=== PATIENT | female | born 1950 | race Caucasian/White ===

== ENCOUNTER 2018-07-31 08:40 | Day surgery (SDC) | payer MEDICARE, OTHER ==
[~2018-07-31 08:40] MED LIST: ALBU90OI6 INH; ALL DAY ALLERGY10 M1 PO; ATOR20 PO; ESTR2; IBUP600; Klor-Con 1010 MEQ; LOPERAMIDE1 MG/7.5 M PO; LORA.5 PO; LOSHYD; MECL12.5; NASACORT10.8 ML; Omeprazole20 M1 PO; SCOPTP
[2018-08-06 13:42] LABS: Performing Lab SYMBIODX; Test Name LEFT BREAST
[2018-09-15] MEDS ORDERED: LOSARTAN-HCTZ1 EAC2 PO (10:41)
[2018-09-15] MEDS ORDERED: ERGO400 PO (10:46)
[2018-09-15] MEDS ORDERED: MICRO-K PO (10:46)
[2018-09-15] MEDS ORDERED: IBUP600 PO (10:47)
[2018-09-15] MEDS ORDERED: MECL12.5 PO (10:48)
== END 2018-07-31 23:05 | disposition home or self-care (01) ==
LOC: MOI US 08:40 → MOI MAM 09:00 → MOI US 09:00 → MOI MAM 08-14 08:00 → MOI US 08-14 08:00
DX: C50.912 Malignant neoplasm of unspecified site of left female breast (principal)
CPT/HCPCS: 19083; 77065; 88305; 88360; 88374; A4648; G0279

== ENCOUNTER 2018-09-18 08:38 | Day surgery (SDC) | payer MEDICARE, OTHER ==
[~2018-09-18 08:38] MED LIST changes: +ERGO400 PO; +IBUP600 PO; +LOSARTAN-HCTZ1 EAC2 PO; +MECL12.5 PO; +MICRO-K PO
== END 2018-09-18 23:10 | disposition home or self-care (01) ==
LOC: MOI US 08:38
DX: C50.812 Malignant neoplasm of overlapping sites of left female breast (principal)
CPT/HCPCS: 19285; 77065; G0279

== ENCOUNTER 2018-09-21 07:50 | Day surgery (SDC) | payer MEDICARE, OTHER ==
[~2018-09-21] VITALS: Ht 160 cm; Wt 88.9 kg
--- NOTE | 2018-09-21 09:34 | NUR ---
Ambulatory in Day Surgery History, Chart, Medications and Allergies reviewed before start of procedure.Lungs clear T/O to Auscultation. Patient confirms NPO status and agrees with scheduled surgery. Surgical site prepped with 2% Chlorhexidine cloth wipe. Patient States Post-Procedure ride home has been arranged.
--- NOTE | 2018-09-21 14:19 | NUR ---
REPORT FROM EVELIO HOWARD. PT AWAKE AND TEARFUL. PROVIDED EMOTIONAL SUPPORT. BREAST BINDER IN PLACE, DRESSINGS CDI. PT TOLERATED FOOD AND FLUIDS. GAVE 2 NORCO PER ORDER. WILL CONTINUE TO MONITOR.
--- NOTE | 2018-09-21 15:55 | NUR ---
PT HAD NARES FOR MRSA SENT PRIOR TO SURGERY. SENT THROAT CULTURE TO RULE OUT MRSA WITHIN 4 HOURS AFTER CLINDAMYCIN GIVEN IN OR. ALL BELONGINGS SENT WITH PATIENT. Discharge instructions reviewed with patient. Patient verbalizes understanding. Copy given to patient to take home. Dressing to procedure site clean, dry, intact with no visible drainage, swelling, erythema or bruising noted. Patient States Post-Procedure ride home has been arranged. Discharged via wheelchair to private car for ride home. BREAST BINDER STRAPS IN D/C ENVELOPE.
--- NOTE | 2018-09-22 13:27 | NUR ---
09/22/18 1327 Veronique Agarwal VERIFICATIONS: EDIT CHART.
[2018-10-06] MEDS ORDERED: POTCHL10ER PO (16:44)
== END 2018-09-21 23:01 | disposition home or self-care (01) ==
LOC: ORSCMMR 07:50 → NM 07:50
PROVIDERS: Surgery
PROC: 0HBU0ZZ Excision of Left Breast, Open Approach (ICD-10-PCS; principal; 2018-09-21 10:30)
PROC: 07B60ZX Excision of Left Axillary Lymphatic, Open Approach, Diagnostic (ICD-10-PCS; principal; 2018-09-21 10:30)
DX: C50.812 Malignant neoplasm of overlapping sites of left female breast (principal); C77.3 Secondary and unspecified malignant neoplasm of axilla and upper limb lymph nodes; I10 Essential (primary) hypertension; J45.909 Unspecified asthma, uncomplicated; K21.9 Gastro-esophageal reflux disease without esophagitis; E66.9 Obesity, unspecified; Z68.34 Body mass index [BMI] 34.0-34.9, adult; Z79.899 Other long term (current) drug therapy
CPT/HCPCS: 38792; 76098; 87070; 87081; 88307; 88331; A9520; J1100; J1885; J2250; J2310; J2370; J2405; J3010; J7120; Q9968

== ENCOUNTER 2018-10-09 06:08 | Day surgery (SDC) | payer MEDICARE, OTHER ==
[~2018-10-09] VITALS: Ht 162.6 cm; Wt 86.9 kg
[~2018-10-09 06:08] MED LIST changes: +POTCHL10ER PO
--- NOTE | 2018-10-09 09:24 | NUR ---
10/09/18 0924 Rocio Cox CLEARED BY RADIOLOGY, UP TO CHAIR AND GIVEN SODA AND CRACKERS
== END 2018-10-09 09:29 | disposition home or self-care (01) ==
LOC: ORSCSDS 06:08 → ORSCMMR 07:30 → ORSCSDS 09:29 → ORSCMMR 10:30 → ORSCSDS 10:30 → ORD 10:30
PROVIDERS: Surgery
PROC: B543ZZA Ultrasonography of Right Jugular Veins, Guidance (ICD-10-PCS; principal; 2018-10-09 07:30)
PROC: 05HM33Z Insertion of Infusion Device into Right Internal Jugular Vein, Percutaneous Approach (ICD-10-PCS; principal; 2018-10-09 07:30)
PROC: B5131ZA Fluoroscopy of Right Jugular Veins using Low Osmolar Contrast, Guidance (ICD-10-PCS; principal; 2018-10-09 07:30)
DX: C50.812 Malignant neoplasm of overlapping sites of left female breast (principal); C50.412 Malignant neoplasm of upper-outer quadrant of left female breast; I10 Essential (primary) hypertension; J45.909 Unspecified asthma, uncomplicated; K21.9 Gastro-esophageal reflux disease without esophagitis; Z79.899 Other long term (current) drug therapy
CPT/HCPCS: 71045; 77001; C1788; J0461; J1100; J1642; J2250; J2370; J2405; J3010; J7120

== ENCOUNTER → 2019-01-23 | Outpatient (CLI) | payer MEDICARE, OTHER | END | disposition home or self-care (01) | LOC: LAB 09:55 → LAB SHORT 09:55 → EDSTATUS 01-23 17:10 → LAB FUT 01-23 17:10 | DX: C50.412 Malignant neoplasm of upper-outer quadrant of left female breast (principal) | CPT/HCPCS: 87493 ==

== ENCOUNTER → 2020-03-09 | Outpatient (CLI) | payer MEDICARE, OTHER | END | disposition home or self-care (01) | LOC: LAB 12:46 → LAB SHORT 12:46 | DX: R30.0 Dysuria (principal) | CPT/HCPCS: 87077; 87086; 87186 ==

== ENCOUNTER → 2020-07-05 | Outpatient (CLI) | payer MEDICARE, OTHER ==
[2020-07-05 14:20] LABS: Source, Urine Clean Catch
[2020-07-05 15:59] LABS: Appearance, Urine Hazy (Clear); Bilirubin, Urine Neg (Neg); Blood, Urine 2+ (Neg); Color, Urine Yellow (P-Yellow); Glucose Qualitative, Urine Neg (Neg); Ketones, Urine Neg (Neg); Leukocyte Esterase, Urine 3+ (Neg); Nitrite, Urine Neg (Neg); Protein, Urine Neg (Neg); Urobilinogen, Urine NORM (Normal)
[2020-07-05 16:05] LABS: White Blood Cells, Urine TNTC /hpf (0-5)
[2020-07-05 16:06] LABS: Bacteria Many /hpf; Squamous Epithelial Cells Few /hpf (Few)
== END | disposition home or self-care (01) ==
LOC: PLD 14:18
PROVIDERS: Radiology Therapeutic Radiology
DX: R30.0 Dysuria (principal)
CPT/HCPCS: 81001; 87077; 87086; 87186

== ENCOUNTER → 2021-12-28 | Outpatient (CLI) | payer MEDICARE, OTHER | END | disposition home or self-care (01) | LOC: LAB SHORT 15:01 → LAB 15:01 | DX: R30.9 Painful micturition, unspecified (principal) | CPT/HCPCS: 87086 ==

== ENCOUNTER → 2022-03-26 | Outpatient (CLI) | payer MEDICARE, OTHER | END | disposition home or self-care (01) | LOC: LAB 15:01 → LAB SHORT 15:01 | DX: N39.0 Urinary tract infection, site not specified (principal) | CPT/HCPCS: 87077; 87086; 87186 ==

== ENCOUNTER → 2022-11-01 | Outpatient (CLI) | payer MEDICARE, OTHER | END | disposition home or self-care (01) | LOC: LAB 16:33 → LAB SHORT 16:33 | DX: N39.0 Urinary tract infection, site not specified (principal) | CPT/HCPCS: 87077; 87086; 87186 ==

== ENCOUNTER 2024-07-05 05:36 | Emergency (ER) | payer MEDICARE, OTHER ==
[~2024-07-05] VITALS: Ht 160 cm; Wt 77.1 kg
[2024-07-05] MEDS ORDERED: Cyclobenzaprine HCl 10 MG Tab PO ONE (05:55)
[2024-07-05] MEDS ORDERED: Lidocaine 4% 1 Patch TOP ONE (05:55)
[2024-07-05] MEDS ORDERED: CYCL10 PO (07:23)
[2024-07-05] MEDS ORDERED: LIDO700A20 TOP (07:23)
[2024-07-05 07:35] VITALS: BP 150/71
== END 2024-07-05 07:41 | disposition home or self-care (01) ==
LOC: ER 05:36
DX: S16.1XXA Strain of muscle, fascia and tendon at neck level, initial encounter (principal); W19.XXXA Unspecified fall, initial encounter; I10 Essential (primary) hypertension; E78.5 Hyperlipidemia, unspecified; K21.9 Gastro-esophageal reflux disease without esophagitis; Z88.2 Allergy status to sulfonamides; Z88.8 Allergy status to other drugs, medicaments and biological substances; Z88.1 Allergy status to other antibiotic agents; Z91.041 Radiographic dye allergy status; Z79.899 Other long term (current) drug therapy
CPT/HCPCS: 72125; 99283-25; A9270